=== PATIENT | female | born 1960 | race Caucasian/White ===

== ENCOUNTER 2018-09-24 09:00 | Outpatient (RCR) | payer MEDICARE, SELFPAY ==
--- NOTE | 2018-09-24 09:05 | BH.SGPN.GN ---
Behaviors/Verbalizations/Mental Status: []Client alert and oriented, clean clothing, hair appeared unkempt. Eye contact good. Motor activity restless. Speech within normal limits. Affect congruent to mood-tearful, mood anxious, depressed. Thoughts linear, logical, no signs of hallucinations or delusions. Reviewed client?s symptom tracker, no risk for suicidal ideation, plan, or intent as of 09/24/18. Client Response/Progress/Benefit: [] Client responded well to session, attentive and receptive to feedback. Client reports feeling ?vulnerable? today. Client shared she has been feeling anxious and afraid for the last several months. The group provided emotional support and client was receptive. Client shared it has been hard to identify positives lately, but she recognized that starting IOP today is ?a huge positive for me.? Client reported she has not been able to get out of her house, so being out and around people is a mental health win. Client appeared to benefit from connecting with peers and normalizing her symptoms. Client?s first day in IOP. Will continue to prevent decompensation and improve mood stability.
--- NOTE | 2018-09-24 10:15 | BH.SGPN.GN ---
Behaviors/Verbalizations/Mental Status: [] Eye contact is good. Motor activity is appropriate. Appearance is dischevled. Speech is Appropriate. Mood is depressed. Affect is flat. Thoughts are linear and logical. No evidence of psychosis. Client Response/Progress/Benefit: [] Pt was an active participant in group discussion and activity. Attentive during psychoeducation. Worked with the group to identify benefits to making changes in our lives which included; growth, new opportunities, new experiences, improved relationships, getting ourself out of our comfort zones, increasing our adaptability, and building confidence. Group then identified barriers to change or what keeps us from making changes which included; change can be risky, fear of the unknown, fear of failure, negative thinking, what if thinking, anxiety, and change is scary. Pt participated along with group in activity where they identified and discussed the emotions related to change. Benefited from increased awareness and understaging of emotions, benefits, and barriers related to change. Will continue in IOP to maintain safety, prevent decompensation, improve coping skills for depression and anxiety Narrative Note: []
--- NOTE | 2018-09-24 11:17 | BH.SGPN.GN ---
Behaviors/Verbalizations/Mental Status: [Pt alert and oriented, casual dress, grooming appropriate. Eye contact good. Motor activity appropriate, at times fidgeting. Speech within normal limits. Affect congruent, mood depressed, anxious. Thoughts linear, logical, no signs of hallucinations or delusions.] Client Response/Progress/Benefit: [Pt responded well to session and remained engaged despite it being her first day in IOP group. She was actively listening throughout discussion as well as providing input. Pt challenged herself to participate in the challenge activity despite some anxiety and helped the group process barriers associated with making change. She noted connecting with barriers identified by group as well as strategies to improve ability to adapt to changing environment. Pt appeared to connect with discussion regarding overcoming the costs of change by identifying potential benefits via decisional balance sheet. Identified a change he would like to make to improve mental health. Change goal identified as continuing with IOP tx. Pt reported potential benefits of change as: being around others who are supportive and understanding, as well as increasing healthy tools for coping with anxiety. Additionally, noted costs of not making the change as: remaining in comfort zone and continuing to struggle with anxiety. Progress noted in pt ability to identify MH benefits of change. Recommended continued IOP to promote healthy change behaviors, improve communication, reduce anxiety, as well as maintain stability.] Narrative Note: []
--- NOTE | 2018-09-24 13:41 | BH.COMM ---
Communication Note - Communication with Client Communication Note: Met with pt to complete intial paperwork and again after IOP to check-in. No significant changes since pre-admission screening. Denies any active suicidal ideations, plan, or intent. Anxious. After IOP continue to report anxiety however was proud of herself for making it through. Is planning on attending tomorrow.
--- NOTE | 2018-09-25 09:10 | BH.SGPN.GN ---
Behaviors/Verbalizations/Mental Status: [] Eye contact is good. Motor activity is appropriate. Appearance is casual. Speech is Appropriate. Mood is anxious. Affect is congruent. Thoughts are linear and logical. No evidence of psychosis. Reviewed daily check in sheet and no reports of suicidal ideations or intent. Client Response/Progress/Benefit: [] Pt was an active participant in group discussion. Provided appropriate feedback to peers. Emotion is anxious. States anxiety is getting in the way of her life. Reports feeling anxious, uncertain, scared, and overwhelmed. Beginning to ruminate that she is going to fail this program and never going to get better. Hopeless. States what if things don't get better. Several cognitive distortions, negative thoughts, and ruminations. Group challenged, provided feedback, and normalized her emotions. No progress noted. Thoughts became overwhelming which set in course a spiral. Benefited from group feedback. Will continue in IOP to stabilize anxiety, prevent decompensation, improve daily functioning, and increase coping skills for anxiety. Narrative Note: []
--- NOTE | 2018-09-25 10:15 | BH.SGPN.GN ---
Behaviors/Verbalizations/Mental Status: []Client alert and oriented, disheveled appearance. Eye contact good. Motor activity appropriate. Speech within normal limits. Affect congruent, mood anxious, depressed. Thoughts linear, logical, no signs of hallucinations or delusions. Client Response/Progress/Benefit: []Client responded well to session, positive contributions and attentive throughout. Client indicated connecting with the topic of cognitive distortions and shared ?I relate to all of these.? Client shared she feels overwhelmed with all of her distortions and was concerned that she will ?never be able to get rid of them.? The group provided reassurance and helped client establish more realistic expectations for progress. Client recognized it will take time to combat and replace negative thoughts. Client agreed with peers that cognitive distortions ?are lies are minds tell us? and they cause increased depression and anxiety. Client contributed as the group defined and reflected upon various types of distortions. Client reported she has used mental filtering, labeling, emotional reasoning. Client benefitted from increasing awareness of cognitive distortions and how they can impact emotions and behaviors. Client?s second day in IOP, no significant progress to document. Client to continue IOP to prevent decompensation and restore baseline functioning.
--- NOTE | 2018-09-25 11:20 | BH.SGPN.GN ---
Behaviors/Verbalizations/Mental Status: [Client alert and oriented, casually dressed, hygiene appropriate. Eye contact good. Motor activity at times restless. Speech within normal limits. Affect congruent, mood dysthymic and anxious. Thoughts linear, logical, no signs of hallucinations or delusions] Client Response/Progress/Benefit: [Pt responded well to session, providing input and asking clarification questions throughout. Pt engaged in the discussion reviewing various types of distortions. Did well to connect with the potential impact they have on mental health. Shared connecting with distortions of catastrophizing, labeling, and emotional reasoning. She noted often reinforcing her anxiety by using distortions. Pt helped the group practice challenging the example cognitive distortions and did well to identify ways to reframe negative thoughts. Pt stated she plans to use reframing, identifying evidence against thoughts, and increasing awareness to decrease use of distorted thoughts. Appeared to benefit from practicing thought challenging and gaining awareness of the effort it takes to reframe negative thoughts. Progress noted as pt reports increased ability to connect materials to own thought patterns. Pt to continue IOP to reduce anxiety, prevent decompensation, as well as decrease isolative behaviors.] Narrative Note: []
--- NOTE | 2018-09-27 09:10 | BH.SGPN.GN ---
Behaviors/Verbalizations/Mental Status: [] Eye contact is good. Motor activity is appropriate. Appearance is casual. Speech is Appropriate. Mood is anxious. Affect is congruent. Thoughts are linear and logical. No evidence of psychosis. Reviewed daily check in sheet and no reports of suicidal ideations or intent. Client Response/Progress/Benefit: [] Pt was an active participant in group discussion. Provided appropriate feedback. Shared with the group that she recently sat down and developed some goals for herself regarding her mental health in order to hold herself accountable. Reports improved mood mainly thoughts IOP group support and education. More hopeful about improvement. Significant fear of failure reported. Fearful that IOP will not work just like other treatment including medication and counseling have not been beneficial. Group challenged what if thinking. Provided feedback regarding challenging thoughts. Pt wrote down a great deal of other's strategies for managing their emotions. Very engaged. Progress noted. Pt reports reduction in anxiety and improved mood since starting IOP. Will continue in IOP to maintain safety, prevent decompensation, and improve daily functioning. Narrative Note: []
--- NOTE | 2018-09-27 10:20 | BH.SGPN.GN ---
Behaviors/Verbalizations/Mental Status: []Client alert and oriented, casually dressed and well groomed- hear washed. Eye contact good. Motor activity appropriate. Speech within normal limits. Affect congruent-tearful, mood anxious. Thoughts linear, logical, no signs of hallucinations or delusions. Client Response/Progress/Benefit: []Client responded well to session, participating in group activity and discussion. Client commented on the quote and shared the reason she has not changed in the past is because of fear of frustration with trying. Client engaged in the discussion of what it means to ?take action? in one?s mental health treatment. Client agreed with peers that to make positive change, one needs self-awareness and follow through. Client identified things in her life she wants to start taking control over and change. These things included: anxiety, fear of the unknown, sleep, impulsiveness, not following through with goals, and negative thinking. Client stated if she could start gaining more control over her anxiety, it would help client accept her limitations and improve mental wellness. Client appeared to benefit from identifying things that are holding her back from mental wellness and learning what it means to ?take action.?
--- NOTE | 2018-09-27 11:25 | BH.SGPN.GN ---
Behaviors/Verbalizations/Mental Status: [Client alert and oriented, casually dressed and groomed. Eye contact good. Motor activity appropriate. Speech appropriate rate and tone. Affect congruent, mood dysthymic, anxious. Thoughts linear, logical, no signs of hallucinations or delusions. ] Client Response/Progress/Benefit: [Client was an active participant AEB client providing some input to discussion and taking notes throughout session. Client attentive and connecting to discussion of the different zones of taking action as well as the pros and cons of each. Client agreed with peers that to grow and improve mental health, one must step out of their comfort zone, but not take on too much at once or this could lead to burnout and regression. Client completed worksheet in which she identified a problem area to focus on, a SMART goal to help work on problem area, and identify additional supports needed to be successful. Client identified she wants to reducing negative self-talk. Client identified a small goal which is to think of two positives about herself each day. Client stated additional supports needed to be successful with goal which included: positive affirmations, thought challenging, and reminders. Appeared to benefit from creating a small goal to aid in mental health progress. Will continue IOP tx to promote use of healthy coping skills, improve emotional regulation skills, and prevent decompensation.] Narrative Note: []
--- NOTE | 2018-09-28 09:12 | BH.SGPN.GN ---
Behaviors/Verbalizations/Mental Status: [Eye contact is good. Motor activity is appropriate. Appearance is casual. Speech is Appropriate. Mood is depressed, irritable. Affect is congruent. Thoughts are linear and logical. No evidence of psychosis. Reviewed daily check in sheet and pt reports passive suicidal ideations which is consistent to baseline, denies plan or intent. Willing to check-in with staff to further assess risk] Client Response/Progress/Benefit: [Pt was an attentive but passive participant in group discussion, willing to process with group. Emotion for today is shitty which pt reports in due to feeling pissed off that she is unable to identify triggers for her anxiety and continues to feel it comes ?out of nowhere?. Identified mental health wins as using opposite action and challenging herself to get out of the house and come to group despite experiencing increased anxiety. Additional win identified as being able to begin to incorporate positive self-talk into daily life. States noticing improved ability to cope as a result. Reports progress in her overall ability to recognize coping skills to use during high anxiety times though continues to struggle significantly in this area. Did well to accept and benefited from group support and encouragement. Will continue IOP level of care to prevent decompensation, reduce anxiety, continue to promote healthy change behaviors, and improve mood management.] Narrative Note: []
--- NOTE | 2018-09-28 10:25 | BH.SGPN.GN ---
Behaviors/Verbalizations/Mental Status: [Client alert and oriented, casually dressed and groomed. Eye contact good. Motor activity appropriate. Speech within normal limits. Affect congruent, mood euthymic, anxious. Thoughts linear, logical, no signs of hallucinations or delusions. ] Client Response/Progress/Benefit: [Client engaged participant as shown by client?s ability to provide some contribution to discussion. Client participated in the discussion of the common myths about self-care including self-care is selfish, easy, makes us weak, and always fun. Indicated struggling with myth that self-care is selfish. Expressed feeling she does not deserve to spend time on self-care. Receptive of challenging this thought with the group. Client worked with group to debunk the myths about self-care. Client stated she is beginning to see how important self-care is in improving self-confidence and reducing anxiety. Client seemed to benefit from increased awareness of the importance of self-care. Client progress shown by increased engagement and ability to connect with materials discussed. Will continue IOP tx, to increase improve mood stability, further promote application of healthy coping skills, improve anxiety management, and prevent decompensation.] Narrative Note: []
--- NOTE | 2018-09-28 11:25 | BH.SGPN.GN ---
Behaviors/Verbalizations/Mental Status: [] Eye contact is good. Motor activity is appropriate. Appearance is disheveled. Speech is Appropriate. Mood is anxious. Affect is congruent. Thoughts are linear and logical. No evidence of psychosis. Restless and rocking back and forth Client Response/Progress/Benefit: [] Pt was attentive as well as an active participant in group discussion. Group identified barriers to completing self-care which included; leaving comfort zone, it takes effort, we avoid caring for ourselves when we are struggling, we depend on others to make us feel better, belief that self-care is selfish, feel guilt when caring for self, and time constraints. Attentive during psychoeducation on types of self care which are spiritual, physical, emotional, social, financial, psychological, and professional. Pt discussed her balance of self-care and group brainstormed strategies to overcome barriers to utilizing self-care strategies consistency. Benefited from assessing current self-care balance and developing strategies to overcome barrier to self-care. Will continue in IOP to stabilize anxiety, decrease isolation, improve daily functioning, and prevent decompensation. Narrative Note: []
--- NOTE | 2018-09-28 12:57 | PCM.HP.BLA ---
History and Physical Date of Admission: 09/24/18 Chief Complaint: The patient is a 57-year old female who is beginning treatment in the intensive outpatient mental treatment program at [facility]. She reports a history of generalized anxiety, agoraphobia, panic disorder, and bipolar disorder. She is a poor historian. History of Present Illness: Patient states that her biggest problem is anxiety. She apparently has had some level of anxiety for much of her life. She denies being a worrier, but it is clear that she obsesses about many things which upset her. She also said that she feels shaky and jittery a lot. She said that about 15 years she started to have panic attacks. She said that she often wakes up in a panic during which she becomes short of breath, her heart is racing and her stomach is upset and she become shaky. She said that she tends to have 2-3 panic attacks per day and also has developed anticipatory anxiety. He also reports unusual anxiety symptoms. She said that doing chores such as cleaning causes her to become anxious. Is unable to say why. She has developed agoraphobia. She does not like leaving the home for fear that something bad will happen. The patient further reports a history of her mood since she was a child. She further reports that she has had problems with depression for about 15 years, worse over the last 4 months. She said depression has been constant and is getting worse. Her sleep is good with the help of medications. Her appetite varies. Her energy level is low. She denies crying spells. She is not able to enjoy things in life. Concentration varies. She denied any current suicidal thoughts. She has been diagnosed with bipolar disorder. I could not elicit a history of manic episodes. However, she refers to being elias and she has a history of impulsive spending in the past. She said that because of this her has limited her access to money. Past Psychiatric History: The patient reports 3 psychiatric admissions in about 2009 to [facility]. She said that all admissions were precipitated by high anxiety and panic symptoms. 1 of her admission she received ECT. She first received mental health treatment about 15 years ago. She has been seeing her therapist for the past 10 years. She also has a psychiatrist through . She said that she has been tried on numerous different medicines in the past, and the either did not work or caused her side effects. Past medicines have included Paxil, Prozac, Celexa and Serzone. She said that gabapentin helped her before, but it caused mouth ulcers. Current Psychiatric Medications: Lamictal 200 mg twice daily, Depakote 250 mg daily, temazepam nightly Medical History: The patient is overweight. She has hypothyroid treated with Synthroid. Family Psychiatric History: No family member has been diagnosed with mental health problems. Personal/Social History: The patient's father is . Her mother is still alive and she reports a good relationship with her. She has 1 brother who . She has 7 living siblings including 3 brothers and 4 sisters. She has a BSN degree. 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 She last worked 7 years ago. He has been receiving disability benefits for the past 7 years. She has been for 32 years and she reports a good relationship with her . She has 2 daughters who are 30 and 26 years old. She denied any history of substance abuse. Review of Systems: Psychiatry: Ongoing symptoms of depression as per HPI. She is not suicidal. There is no psychosis. She is cognitively intact. Constitutional: She is overweight and her weight has been steady. Her energy level is low. She is hypothyroid. All other systems reviewed and are negative. Examination: The patient presents as a very chatty woman of overweight build who is casually dressed and appropriately groomed. She demonstrates fair social skills. Vital signs: Height 5 foot 1 inches, weight 182 pounds, respirations 16. Musculoskeletal: No muscle weakness or joint pain. Her speech is fluent and spontaneous. Her language is intact. Her judgment and insight appear to be intact. She is alert and oriented x3. Her affect is cordial and appropriate. Her recent and remote memory appear to be intact. She appears to have reduced concentration and attention span. She has normal thought processes and abstract reasoning. Her associations are intact. There are no hallucinations or delusions and she is not suicidal. She demonstrates normal age-appropriate fund of knowledge. Mental Status Examination: The patient presents as a very chatty woman of overweight build who is casually dressed and appropriately groomed. Her thoughts are logical and coherent. She reported ongoing symptoms of depression as per HPI. She is not suicidal. There is no psychosis. She is cognitively intact. Diagnoses: [place] I: BRIGID; panic disorder with agoraphobia; bipolar disorder by history, currently depressed [place] II: Deferred [place] III: Overweight, hypothyroid Plan: The patient will continue on her current medicines as prescribed by her psychiatrist. Will participate in the intensive outpatient groups. I will see her again as needed.
--- NOTE | 2018-09-28 13:19 | BH.DR.ITP ---
Initial Treatment Plan - Patient Information Visit Information: ADMISSION DATE: 09/24/18 EXPECTED LOS: 4-6 weeks Diagnoses:: BRIGID; panic disorder, agoraphobia; bipolar disorder by history, currently depressed - Problems/Symptoms Problem #1:: Anxiety Symptom:: feelings of anxiety, shakiness; panic attacks; Problem #2:: agoraphobia Symptom:: doesn't want to leave the house Problem #3:: Depression Symptom:: low mood, anhedonia; low energy, low motivation
--- NOTE | 2018-09-28 15:21 | BH.PSA_ITS ---
Source of Information - Presenting Problems/Circumstances Problems, Referral Source, Mental Status, Client: Referred by outpatient psychiatrist due to worsening anxiety, isolation, panic attacks, and overall inablity to function. Alert and oriented. Mood is anxious. Affect is congruent. Restless. Rocking back and forth. Portions of this psychosocial have not been completed due to pt leaving the program on her own accord. Psychosocial was started however was not able to be compelted in one sitting due to pt's symptoms and request to leave session early due ot being overwhelmed. Plan was to complete at later date Psychiatric Presentation - Psych Issues & Need for Admission Psychiatric Issues:: Anxiety, Panic attacks, agoraphobia, depression, isolation, avoidance, hopelessness. Past Psychiatric History - MH Treatment Hx First hospitalization:: [facility]- 2009 Most recent hospitalization:: refer above Medication Trials:: Yes - refer to psychiatrist note ECT Therapy:: Yes Age of first mental health symptoms: Reports that anxiety began to manifest and become overwhelming about 7 years ago. This led to quitting her job and starting on SSDI. Describe (age, circumstance, etc) any past hospitalizations: Anxiety, daily panic attacks, inability to function, and depression. Current providers for mental health treatment (counselor, psychiatrist, case briefer, etc.): Dr. Oralia Dominguez- psychiatrist, [facility]. Donny Pressley- therapist, [facility] - Childhood Significant Childhood Events: Pt left the program prior to obtaining complete psychosocial. Difficult to complete psychosocial in one sitting due to anxiety, restlessness, and shakiness. - Family Who currently lives in your home?: Currently lives with of 32 years Describe family composition:: Pt's mother is alive and her father is . She has 7 siblings including 3 brothers and 4 sisters. for 32 years. She has 2 daughters who are 30 and 26 years old and grandchildren. - Family History Family Hx of Psychiatric or AOD Problems: No family hx reported Ethnicity - Culture Do you identify yourself with any particular cultural, ethnic background, or community?: No - Sexuality Sexual Orientation: Heterosexual Mental Status - Memory Recent Memory: Poor Remote Memory: Poor - Concentration Concentration: Poor - Eye Contact Eye Contact: Scans - Speech Speech: Articulate - Thought Process Thought Process: Logical, Ruminations Insight: Poor Judgment: Poor Behavior: Anxious - Orientation Orientation: Time, Person, Place, Situation - Appearance Appearance: Disheveled - Mood Mood: Anxious, Depressed, Irritable - Affect Affect: Alert Suicide Assessment - Suicidal Ideation Have you ever felt like hurting yourself?: No Please explain:: Denies active suicidal ideations, plan, intent, or hx of attempts. Denies hx of SI , however reports thoughts of or desire to be Fall asleep and not wake up. Thoughts are passive. Were you using ETOH/drugs at the time?: No Suicidal Intentional Rating Scale (SIRS): No suicidal thoughts (past or present) Physician Notification: If Active suicidal thoughts/Will not contract for safety is checked, contact physician and document in the Physician Notification section below. Violent Behavior/Abuse History - Homicidal Ideation Do you have any homicidal thoughts? If so, explain:: No Is there a known potential victim? If yes, who:: No - Abuse Have you ever been abused?: No Please explain:: Pt left the program prior to obtaining complete psychosocial. Difficult to complete psychosocial in one sitting due to anxiety, restlessness, and shakiness. - Life Events Are there any other significant life events?: Hardships Describe significant life events: Currently on SSDI due to mental health symptoms. 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 - Safety Do you ever feel threatened in your home? If yes, describe:: No Adult Social History - Age 18 to Present Describe your current support system:: , daughters, and grandchildren Substance Use - Substance Substance Use Type: None - Denies hx of substance abuse Leisure/Social Activities - Interests What do you enjoy or might be interested in learning about?: Ways to stop panic attacks. Feels that she has no control over her MH symptoms. Education & Occupational Histo - Education What is your level of education?: Bachelor Degree - Nursing Do you have any learning disabilities?: No - Occupation List any current or past employment:: Pt left the program prior to obtaining complete psychosocial. Difficult to complete psychosocial in one sitting due to anxiety, restlessness, and shakiness. List any previous volunteering you may have done:: Pt left the program prior to obtaining complete psychosocial. Difficult to complete psychosocial in one sitting due to anxiety, restlessness, and shakiness. Service - Service Have you ever been in the ?: No Legal History - Records Have you had any past legal charges?: No Do you have any current legal charges?: No Have you ever been incarcerated? If yes, describe:: No - Court Orders Have you had any past court orders for psychiatric treatment?: No Do you have a present court order for psychiatric treatment?: No Problem Checklist - Current Problem Areas Problem List: Depressed mood/sad, Anxiety, Additional psychosocial stressors Discharge Planning Needs - Anticipated Follow-Up Mental Health Center (Name/Phone Number):: n/a Private Therapist/Psychiatrist:: Oralia Dominguez- psychiatrist [facility] Other (to be determined): Donny Pressley- therapist Family and Caregiver Contacts:: Aureliano Ogedn- Release of Information Signed:: Yes Community Agency Contacts: n/a Intermediate Card Tender Name/Phone Number: n/a Budget Manager's Assessment - Client's Needs What are the client's feelings about the program?: Pt is optimistic about the program however has been ruminating on the fact that all other treatment has not been helpful. What are the client's goals?: Decrease anxiety, improve daily functioning, increase socialization, and increase time spent outside of her house. What are the client's strengths?: intelligent, states I'm not a quitter Diagnoses - Diagnoses Diagnosis #1:: Generalized Anxiety Disorder Diagnosis #2:: Panic Disorder Diagnosis #3:: Agoraphobia Interpretive Summary - Interpretive Summary Interpretive Summary: Pt is a 57 year old female. Hx of Bipolar, MDD, BRIGID, and agoraphobia. Previous psychiatric admission in 2009. Hx of ECT and is currently linked with counseling and psychiatry. Referred to [facility] by psychiatrist due to worsening anxiety and depression which is impacting daily functioning. Worsening symptoms for the past 3 months stating anxiety is controlling my life. Endorses frequent panic attacks and reluctance to leave her house except for family functions and medical appointments. Difficulty with ADLs and household responsibilities. Erratic appetite, low motivation, low energy, no motivation, hopelessness, and worthlessness. Denies active suicidal ideations, plan, intent, or hx of attempts. Protective factors are children and grandchildren. Future- oriented looking forward to seeing and moving closer to grandkids. Reports thoughts of which are passive Sometimes I want to fall asleep and not wake up. Numerous medication trails and ECT with limited benefit. Limited coping skills despite years of counseling. Treatment Plan Recommendations - Recommendations Guidelines: Special needs identified to be included in the development of an individualized treatment plan regarding past psychiatric history and treatment, developmental events, family relationships/events/culture, past and/or current educational, occupational, social, and residential experience, and legal status. Recommendations:: Due to MH symptoms interfering with daily functioning, daily panic attacks, limited benefit from traditional counseling, and significant isolative behaviors recommended [facility] level of care.
--- NOTE | 2018-09-28 15:21 | BH.MDN ---
Multi-Disciplinary Note - Note 30-min Individual Time Started:: 12:30 Date: 09/28/18 Purpose of session/treatment goals addressed:: Assess current symptoms. Review progress in IOP. Begin treatment plan development. Eye Contact:: Fair Motor Activity:: Restless Appearance:: Disheveled Speech:: Appropriate Mood:: Anxious, Depressed Affect:: Congruent Thoughts:: Linear, Logical, No evidence of hallucinations/delusions noted Staff Interventions:: Utilized [place] techniqies to elicit change behaviors. Challenged at times. Begin to work on treatment plan goals. Client Response:: Pt was tearful at the start of the group. States that she is overwhelmed and feels like a burden. States I can function at home ... I can't go outside or even to the mailbox. Feels guilty about burden of to care for her. States anxiety is taking over my life. 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 No motivators. When asked about goals she reports she wants to function again and stop anxiety from taking over her life. Does not beleive that coping skills are effective. Challenged her as she reported minimal anxiety yesterday. She was open to discussion on being proactive rather than reactive with anxiety. Talked about analogy of mood with diabetes. Agreeable to tracking mood and utilizing skills prior to elevated anxiety to keep levels managable. Apperars optimistic about IOP however believes that thier is so much to accomplish in so little time. Isolating at home. Overwhelmed an not completeing household tasks. Risks/Concerns:: Denies any suicidal ideations, plan, or intent. No risks or concerns noted. Progress Toward Goals/Plan:: Progress reported since starting IOP per pt report. Yesterday pt reported mild anxiety which was hopefull however regression noted today. Will continue in IOP to develop new strategies to manage anxiety, decrease isolation, prevent decompensation, and improve daily functioning. Time Stopped:: 13:00
--- NOTE | 2018-09-28 15:21 | BH.MTP ---
Master Treatment Plan - Patient Information Program Physician:: Dr. Pravin Aguiar Primary Therapist:: Hernan Smith - Psychiatric Diagnoses Psychiatric Diagnoses:: Generalized Anxiety Disorder. Panic Disorder. Agoraphobia Diagnosis Code(s):: F41.1 - Estimated LOS Estimated LOS (in weeks):: 6 Problem/Goal #1 - Problem/Goal #1 Stated Goal:: Client will reduce overall frequency, intensity, and duration of the anxiety so that daily functioning is not impaired. Description of Barriers: hopelessness, long-standing anxiety which limited improvement through numerous interventions, comfortable with isolation. Functional Impact: Anxiety has resulted in significant isolation and avoidant behaviors. Goal Relevant Strengths/Supports: is supportive. - Objectives Objective #1 Stated Objective: Client will learn and implement 2-3 problem solving strategies to realistically addressing worries as she tends to ruminate on issues of which she has no control. Interventions: Through individual and group counseling will teach client problem-solving strategies involving defining a problem, brainstorming solutions, selecting and implementing various solutions or radical acceptance. Discharge Criteria: Client will have achieved this goal when can verbalize at least two problem solving strategies and utilize the strategies to realistically address worries or radically accept them. Will show decrease in anxiety subscale of DSM cross-cutting measurement Target Date: 09/24/18 Review Date: 10/25/18 Problem/Goal #2 - Problem/Goal #2 Stated Goal:: Will develop strategies to increase time spent outside the house which is impacted by Agoraphobia. Description of Barriers: Long-standing isolation and avoidance. Limited time outside of the house except to go to medical appointments and spend time with grandkids. Functional Impact: Isolating. Difficult leaving the house to get mail or even sitting outside. - Objectives Objective #1 Stated Objective: Will develop and implement a gradual plan to increase time spent outside the house. Interventions: Through group and individual counseling will work on small gradual goals to increase socialization. Will learn internal and external skills to incorporate in plan. Discharge Criteria: Pt will complete plan and begin to implement. Target Date: 10/25/18 Review Date: 10/25/18 Problem/Goal #3 - Problem/Goal #3 Stated Goal:: Client will reduce depressive symptoms, feelings of worthlessness, and anhedonia through Intensive Outpatient Program. Description of Barriers: Hopelessness. Long-standing symptoms. Limited benefit from numerous interventions in the past. Functional Impact: Impacting motivation and hope - Objectives Objective #1 Stated Objective: Identify at least 2-3 negative self-talk messages used to reinforce feelings of worthlessness and replace thoughts with positive messages. Interventions: Therapist will help client identify distorted, negative beliefs about self and replace with more realistic, affirmative messages. Discharge Criteria: Client will have achieved this goal when can verbalize at least 2 negative self-talk messages and effectively replace those thoughts with affirmative messages. Will also show decline in depression subscale on the DSM 5 cross cutting measurement. Target Date: 10/25/18 Review Date: 10/25/18
--- NOTE | 2018-10-01 09:10 | BH.SGPN.GN ---
Behaviors/Verbalizations/Mental Status: [] Eye contact is good. Motor activity is appropriate. Appearance is casual. Speech is Appropriate. Mood is anxious. Affect is congruent. Thoughts are linear and logical. No evidence of psychosis. Reviewed daily check in sheet and no reports of suicidal ideations or intent. Client Response/Progress/Benefit: [] Pt was an active participant in group discussion. Mood today is positive however apprehensive. Reports positive interaction with family. Reports decreased anxiety and depression. Reports increased hope. Improved mood. yesterday and today. She did not share much however provided appropriate feedback to peers. Unable to identify anything exactly that caused decrease in anxiety and depressive, however is reporting a more positive perspective. Benefited from group support and encouragement. Will continue in IOP to prevent decompensation, decrease isolative behaviors (remains in her house all day), increase social activities, and learn coping skills to better manage anxiety. Narrative Note: []
--- NOTE | 2018-10-01 10:19 | BH.SGPN.GN ---
Behaviors/Verbalizations/Mental Status: [Client alert and oriented, casually dressed and groomed. Eye contact good. Motor activity appropriate. Speech within normal limits. Affect congruent to topic being discussed, mood dysthymic, anxious. Thoughts linear, logical, no signs of hallucinations or delusions.] Client Response/Progress/Benefit: [Pt was an active participant in group discussion, challenged herself to provide increased input compared to prior sessions. Connected with quote, indicating connecting with fellow participants examples of potential communication barriers. Pt agreed with peers that being vague, tone, and non-verbal communication can have negative impacts on relationships and reinforce mental health symptoms. Group discussed the MH benefits to having open and clear communication with support and providers. Group discussed the barriers that tend to impact clear and open communication which include: making assumptions, shutting down, non-verbal communication, tone of voice, and listening to respond not understand. Pt stated she is sometimes struggles to communicate effectively out of fear, lack of confidence, and lack of knowing how to communicate when something is upsetting her. Pt was attentive during psycho-education on communications styles (aggressive, passive, passive-aggressive, and assertive), provided input on the pros and cons to each communication style. Pt seemed to benefit from increased insight on how communication styles impact mental health. Pt to continue IOP level of care to continue utilization of healthy coping skills, challenge distorted thoughts, improve mood stability, and prevent decompensation.] Narrative Note: []
--- NOTE | 2018-10-01 11:21 | BH.SGPN.GN ---
Behaviors/Verbalizations/Mental Status: [Client alert and oriented, casually dressed and appropriately groomed. Eye contact good. Motor activity appropriate. Speech within normal limits. Affect congruent, mood anxious, dysthymic. Thoughts linear, logical, no signs of hallucinations or delusions] Client Response/Progress/Benefit: [Client active participant AEB positive contributions and increased engagement throughout. Client reported she is either a passive or aggressive as a communicator depending on the individual and environment. Indicated that this has resulted in increased depression and isolation in the past. Client took an mostly passive but attentive role during the discussion reviewing different communication styles and why each may be used, as well as how ineffective communication negatively impacts mental health and relationships. Client identified communication goal which is to practice saying ?no? as needed or when feeling overwhelmed. Client seemed to benefit from increased insight into how current communication style impacts mental health and identifying strategies for increasing effective communication skills. Client progressing as shown by increased engagement of skill and ability to identify connection with materials discussed. Will continue IOP tx to promote mood stability, further improve daily functioning, and prevent decompensation.] Narrative Note: []
--- NOTE | 2018-10-02 09:10 | BH.SGPN.GN ---
Behaviors/Verbalizations/Mental Status: [] Eye contact is good. Motor activity is appropriate. Appearance is disheveled. Speech is Appropriate. Mood is depressed. Affect is flat. Thoughts are linear and logical. No evidence of psychosis. Reviewed daily check in sheet and no reports of suicidal ideations or intent. Client Response/Progress/Benefit: [] Pt was an active participant in group discussion and processing. Emotion for today is accomplished. Shared with the group a couple wins from yesterday. Discussed an encounter with another route sales delivery driver while on the way to group today. This route sales delivery driver was visibly upset with her and honking at her. Pt reports that in the past this would have been extremely overwhelmed, caused anxiety, could have caused panic attacks, and she would have ruminated on that for days. Reports it could have triggered her and could have possibility led to no driving. Instead she accepted the event for what it is which was a mild inconvenience and went about her morning. Did not ruminate and avoided a road rage incident. Appears to have used some thought-stopping and reframing techniques. Progress noted per pt report. Provided appropriate feedback to peers. Benefited from group support and encouragement. Will continue in IOP to prevent decompensation, decrease panic attacks, decrease isolation, and improve daily functioning. Narrative Note: []
--- NOTE | 2018-10-02 10:20 | BH.SGPN.GN ---
Behaviors/Verbalizations/Mental Status: []Client alert and oriented, neatly dressed and groomed. Eye contact good. Motor activity appropriate. Speech within normal limits. Affect congruent, mood anxious. Thoughts linear, logical, no signs of hallucinations or delusions. Client Response/Progress/Benefit: []Client receptive of session and providing to discussion. Did well to participate in the activity and contributed to the discussion of the group topic of resilience. Client shared the activity was anxiety producing for her, ?but we didn?t give up.? Client defined resilience as ?looking inside yourself and having self-awareness? which helps a person bounce back from challenges in life. Client gave examples for how resilience can positively impact mental health and wellness. Client stated viewing hardships as possible to overcome rather than insurmountable helps someone be resilient. Client engaged in small group discussion about the various strategies that can help strengthen one's resilience and provided examples of the benefits of self-awareness and courage and confidence in increasing resilience. Client seemed to benefit from increased awareness of various components that can contribute to resilience. Progress noted as client reports increased self-awareness since last week, however, no significant progress at this time due to recent start in program. Continued IOP recommended to prevent decompensation and increase mood stability.
--- NOTE | 2018-10-02 11:17 | BH.SGPN.GN ---
Behaviors/Verbalizations/Mental Status: [Client alert and oriented, casually dressed and appropriately groomed. Eye contact good. Motor activity appropriate. Speech within normal limits. Affect congruent to topic being discussed, mood dysthymic, agitated. Thoughts linear, logical, no signs of hallucinations or delusions.] Client Response/Progress/Benefit: [Client engaged, though mostly passive participant throughout which was evidenced by client providing limited input to discussion, though pt was listening attentively to peers. Client worked cooperatively with peers to identify how each resiliency factor can help increase personal resiliency. Client reported she wants to work on the resiliency component of ?nurture a positive view of self?. Client stated she will work on increasing personal resilience by improving ability to engage in self-care daily and begin to improve ability to spend time engaging in activities that make her feel more confident and decrease anxiety. Reports plans to use affirmations and continue to remain in therapy. Client appeared to benefit from identifying goal to improve personal resilience factors. Client to continue IOP to continue to encourage increased use of healthy coping skills, continue to reduce anxiety, increase mood stability, and prevent decompensation.] Narrative Note: []
--- NOTE | 2018-10-04 09:10 | BH.SGPN.GN ---
Addendum entered and electronically signed by LISSETH Tse 05/19/19 12:56: Amended to include missing group documentation #2 Date: 10/04/18 1025 Duration: 54 minutes Industrial Economist: Michelle Salcedo/LISSETH Group Topic: [Rat Trap] # of Participants: [9] Goal of Group: [To identify within self what is keeping client trapped from achieving better quality of life.] Staff Interventions: [Therapist facilitated discussion about what is keeping client?s stuck from moving toward mental wellness. Therapist assisted clients in connecting how thoughts can contribute to keeping clients stuck. Therapist led discussion about barriers clients face from making changes to help one move forward. Therapist provided support by using active listening and giving feedback to others.] Behaviors/Verbalizations/Mental Status: Client alert and oriented, casually dressed and groomed. Eye contact fair to good. Motor activity appropriate. Speech within normal limits. Affect congruent, mood dysthymic, anxious, agitated. Thoughts linear, logical, no signs of hallucinations or delusions. Client Response/Progress/Benefit: Client responded well to session, attentive and participating in discussion, though tearful at times when discussing thoughts that ?keep you trapped?. Participated in discussion of things that can keep people feeling trapped or stuck in life including; isolation, lack of trust, past experiences, negative perspective, lack of awareness, denial, fear, and low self-esteem. Group discussed the connection between thoughts, emotions, and behaviors as well as how negative thinking can keep a person stuck. Client attentive during psychoeducation on maintenance cycles. Client able to identify negative thoughts that have reinforced own maintenance cycle and kept client feeling trapped. Client shared a negative thought maintaining depression as ?I?m always going to feel like this, nothing is going to get better.? Client reported this thought has been particularly strong and recurring lately. Noted it has caused increased anxiety, hopelessness, and feeling like she is ?all alone?. Appeared to benefit from gaining awareness of how negative thoughts reinforce mental health symptoms. Progress noted in client?s report of improved awareness of thoughts keeping her stuck. Some difficulties in ability to address this thought. Will continue IOP to prevent decompensation, increase emotional regulation, and maintain safety. Original Note: Behaviors/Verbalizations/Mental Status: [] Eye contact is poor. Motor activity is appropriate, however restless. Appearance is disheveled. Speech is Appropriate. Mood is anxious. Affect is congruent. Thoughts are linear and logical. No evidence of psychosis. Reviewed daily check in sheet and no reports of suicidal ideations or intent. Client Response/Progress/Benefit: [] Pt was particularly anxious today. Reports decompensation from previous session. Triggering event reported to be a family session with and her outside therapist yesterday. Shared some conflict with regarding housing situation. Pt wants to move closer to her daughter and grandkids, however is reluctant. Decision was made to wait 3 years or so. During the session pt reports that requested some goals for pt which included leaving the house for 5 minutes each day. Pt reported that this goal was realistic, however later mentioned how overwhelming this goal is. Additional stressor is poor sleep. Stated numerous times throughout the sessions that anxiety and panic drives her mood and behaviors. Hopeless and ruminating that this program and outpatient treatment will not be helpful. Regression noted after family session as per report some demands were placed on her which she is struggling to accept and feels she will fail. Benefited from group support and encouragement. Group seemed to provide a distraction as well. Will continue in IOP to improve daily functioning and develop new strategies to manage anxiety. Narrative Note: []
--- NOTE | 2018-10-04 13:27 | BH.MDN_ITS ---
Multi-Disciplinary Note - Note 30-min Individual Time Started:: 11:45 Date: 10/04/18 Purpose of session/treatment goals addressed:: Pt left group tearful. Met with pt to assess current symptoms. Eye Contact:: Poor Motor Activity:: Restless Appearance:: Disheveled Speech:: Appropriate Mood:: Anxious, Irritable, Depressed Affect:: Congruent Thoughts:: Linear, Logical, No evidence of hallucinations/delusions noted Staff Interventions:: Utilized UT techniques to elicit change behaviors. Education on connection between thoughts, feelings, and actions. Homework assigned. Allowed pt to vent frustrations. Client Response:: Pt is tearful. Reports feelings of anger, depression, and anxiety. Ruminating what if this program doesn't work. Has only been in the program less than 2 weeks. Talked about other treatments such as ECT, counseling, medications, and hospitalizations which have not improved her symptoms. Numerous cognitive distortions verbalized. Unable to verbalize a trigger to emotional distress today. Able to calm self after 10-15 minutes. States that this is what her anxiety attacks look like. At first unable to verbalize trigger however after talking realized it was fear of failing this program. Denies any suicidal ideations, plan, or intent. Denies any issues with this program stating I feel safe and I like it here. States I'm not going to give up ... I'm not a quitter. Reports that session was helpful and she is feeling less anxious and more hopeful. Continues to report that she does not leave the house except to go to appointments. Set goal with this week to spend 5 minutes outside. Does not feel she can accomplish this goal. Risks/Concerns:: Denies any suicidal ideations, plan, or intent. Future- oriented. Protective factors reported. Progress Toward Goals/Plan:: Erratic progress. Labile mood throughout the day as this AM she was talkative, confident, and hopeful. Day to day her anxiety is erratic as well. Reports numerous years of therapy however has limited coping skills or strategies to manage anxiety. Said she has completed thought logs and they weren't helpful however when describing these logs it appears she simply charted her mood. Brief education on thought logs and the connection between thoughts, feelings, and actions. Appears receptive. Will begin to track thoughts so she can utilize thought-stopping and reframing skills. Will educate on cognitive distortions. Will continue in IOP. Currently not functioning well. Does not leave the house due to anxiety except to go to medical appointments. Panic attacks daily. Depression and crying spells. Time Stopped:: 12:15
--- NOTE | 2018-10-05 09:10 | BH.SGPN.GN ---
Behaviors/Verbalizations/Mental Status: [] Eye contact is good. Motor activity is appropriate. Appearance is casual. Speech is Appropriate. Mood is anxious. Affect is congruent. Thoughts are linear and logical. No evidence of psychosis. Reviewed daily check in sheet and no reports of suicidal ideations or intent. Client Response/Progress/Benefit: [] Pt was an active participant in group discussion. Provided lengthy feedback to peers regarding forgiving others for their actions and guilt. Pt chose not to share with the group stating I pass when called upon. Restless during the group rocking back and forth however attentive. Provided appropriate feedback to peers. Reviewed daily symptoms tracker with 0/5 for suicidal ideations, 0/5 for intent, and 2/5 for hopelessness. Reported poor sleep last night and anxiety and agitation on symptom tracker. Briefly met with with patient after group. Denies any significant issues or concerns stating I'm OK. No progress noted by patient. Benefited from group support and distraction. Will continue in IOP to decrease anxiety, panic attacks, prevent decompensation, and improve daily functioning. Narrative Note: []
--- NOTE | 2018-10-05 10:13 | BH.SGPN.GN ---
Behaviors/Verbalizations/Mental Status: []Eye contact is good. Motor activity is appropriate. Appearance is casual. Speech is Appropriate. Mood is anxious. Affect is congruent. Thoughts are linear and logical. No evidence of psychosis. Client Response/Progress/Benefit: []Client responded well to session, attentive during discussion. Client contributed to discussion of the importance of sleep and how it impacts mental health. Client able to identify benefits of sleep on mental health including: improved emotional regulation, improved attention, and better cognition. Client participated in the discussion of the ?dos and don?ts? of sleep hygiene. The group identified strategies to improve sleep hygiene including: turning off electronics, having a routine, and engaging in relaxation strategies. Client participated in identifying things to avoid or things that could hinder sleep quality including: drinking alcohol before bed, exercising before bed, eating large meals, and playing with electronics. Appeared to benefit from psychoeducation on sleep hygiene. Will continue IOP tx to prevent decompensation of anxiety symptoms and improve daily functioning.?
--- NOTE | 2018-10-09 12:10 | BH.DS_ITS ---
Discharge Summary - Demographics Date of Admission:: 09/24/18 Discharge Date: 10/09/18 Presenting Problems at Admission:: Pt is a 57 year old female. Hx of Bipolar, MDD, BRIGID, and agoraphobia. Previous psychiatric admission in 2009. Hx of ECT and is currently linked with counseling and psychiatry. Referred to IOP by psychiatrist due to worsening anxiety and depression which is impacting daily functioning. Worsening symptoms for the past 3 months stating anxiety is co ntrolling my life. Endorses frequent panic attacks and reluctance to leave her house except for family functions and medical appointments. Difficulty with ADLs and household responsibilities. Erratic appetite, low motivation, low energy, no motivation, hopelessness, and worthlessness. Denies active suicidal ideations, plan, intent, or hx of attempts. Protective factors are children and grandchild kirby. Future-oriented looking forward to seeing and moving closer to grandkids. Reports thoughts of which are passive Sometimes I want to fall asleep and not wake up. Numerous medication trails and ECT with limited benefit. Limited coping skills despite years of counseling. Discharge Diagnoses:: BRIGID. Panic Disorder with agoraphobia. Bipolar, by hx Reason for Discharge:: Pt communicated to staff via email and phone message that she did not feel the program was beneficial and requested to be discharged. - Treatment Progress During Treatment & Response: Pt had limited progress. Pt's anxiety and response to treatment was erratic often presenting to group reporting minimal symptoms and other days significant distress. Despite years of individual and marital counseling she has limited coping skills aside from distraction. IOP attempted to teach and encourage thought-reframing, challenging, and other CBT techniques, however pt did not follow through with assignments. Decompensation noticed last week after marriage counseling session with therapist outside of the program. Reported that she was given a goal to go outside for 5 minutes a day. Was ruminating on this goal and felt like she was a failure for not being able to do this. Caused her to discount IOP stating this is not going to work so why try. Pt never verbalized any suicidal ideations, plan, or intent during the program. On her last day 10/05/18 her self-reported SI was 0/5. No concern for safety. Did not present as imminent danger to heself due to no active ideations, plan, or intent. Spoke often about protective factors of grandchildren. Primary reason reported for discharge was did not feel her anxiety was improving. Issues Still to be Addressed:: Anxiety, panic attacks, isolation, agoraphobia, avoidance, depression, and lack of coping skills. Discharge Recommendations/Instructions:: Recommended to complete PHP since lower levels of care have been ineffective. Also recommended to continue with her outpatient therapist and psychiatrist. Discharge Handout: Complete Discharge Handout with client on aftercare options and continuity of care.
== END 2018-10-09 09:00 | disposition home or self-care (01) ==
LOC: BHIOP 09:00
PROVIDERS: Referring Provider Psychiatry & Neurology Psychiatry; Visit Provider Psychiatry & Neurology Psychiatry
DX: F41.1 Generalized anxiety disorder (principal); F40.01 Agoraphobia with panic disorder; F31.9 Bipolar disorder, unspecified; E03.9 Hypothyroidism, unspecified; Z79.899 Other long term (current) drug therapy; E66.3 Overweight
CPT/HCPCS: H0035; 90832; 90853